=== PATIENT | male | born 1980 | race Caucasian/White ===

== ENCOUNTER 2021-06-27 09:16 | Emergency (ER) | payer OTHER ==
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
[2021-06-27 10:07] LABS: Amorphous Sediment,Urine Rare /hpf; Appearance,Urine Cloudy (Clear); Bilirubin,Urine Negative (Negative); Blood,Urine Trace (Negative); Color,Urine Yellow; Glucose,Urine (UA) Negative (Negative); Ketones,Urine Negative (Negative); Leukocyte Esterase,Urine Negative (Negative); Mucus,Urine Rare /hpf; Nitrite,Urine Negative (Negative); Protein,Urine Trace (Negative); RBC,Urine 16 /hpf (0-5); Specific Gravity,Urine 1.019 (1.001-1.035); Urobilinogen,Urine <2.0 mg/dL (<2.0); WBC,Urine 10 /hpf (0-5)
--- NOTE | 2021-06-27 10:20 | US ---
EXAMINATION TYPE: US scrotum with doppler. Grayscale and color Doppler Duplex imaging performed of libby noriega scrotum. DATE OF EXAM: 06/27/2021 COMPARISON: NONE CLINICAL HISTORY: trauma. edema EXAM MEASUREMENTS: TESTICLES: Right Testicle: 4.0 x 2.4 x 3.0 cm Left Testicle: 4.5 x 2.1 x 2.5 cm EPIDIDYMIS HEAD: Right Epididymis: .9 cm appears heterogenous and enlarged. Left Epididymis: .8 x .6 cm Doppler performed to assess for testicular vascularity; good bilateral color flow and waveforms are s een. There is no evidence of testicular torsion. Presence of hydroceles: no Presence of varicoceles: no IMPRESSION: 1. Superficial soft tissue swelling of unknown etiology. 2. Underlying testicles have symmetrical and normal blood flow.
[2021-06-27] MEDS ORDERED: cefTRIAXone 500 MG VIAL IM STA (10:44)
[2021-06-27] MEDS ORDERED: AZITHROMYCIN 500 MG TAB PO STA (10:45)
[2021-06-27 10:58] VITALS: BP 119/82; PULSE 63; RESP 16; TEMP 98.3
[2021-06-28 14:28] LABS: C. trachomatis,PCR Positive (Neg,Equiv); Chlamydia trachomatis Source Urine; N. gonorrhoeae,PCR Negative (Neg,Equiv); Neisseria Source Urine
== END 2021-06-27 11:05 | disposition home or self-care (01) ==
LOC: EC 09:16
DX: S30.22XA Contusion of scrotum and testes, initial encounter (principal); W50.0XXA Accidental hit or strike by another person, initial encounter
CPT/HCPCS: 99284; 96372; 81001; 87491; 87591; 87086; 93975; 76870; J0696

== ENCOUNTER 2023-05-06 02:44 | Inpatient (IN) | payer OTHER ==
[2023-05-06] MEDS ORDERED: ONDANSETRON 4 MG/2 ML VIAL IVP STA (03:16)
[2023-05-06] MEDS ORDERED: HYDROmorphone 0.5 MG/0.5 ML SYRINGE IVP STA (03:16)
[2023-05-06] MEDS ORDERED: SODIUM CHLORIDE 0.9% 500 ML 500 ML IV ONE (03:16)
--- NOTE | 2023-05-06 03:23 | ED ---
General Adult HPI - General Source: patient, RN notes reviewed Mode of arrival: ambulatory Limitations: no limitations <Erickson Mann - Last Filed: 05/06/23 04:06> <Shira Hensley - Last Filed: 05/06/23 16:01> - General Chief complaint: Skin/Abscess/Foreign Body Stated complaint: Abscess on nose - History of Present Illness Initial comments: patient is a 42 year old male presenting to the ER with a chief complaint of nose abscess and facial swelling. pt states he first noticed a small pimple on his nose about 4 days ago. he tried to squeeze it but got little purulent discharge. patient reports try to squeeze it again about 5 hours ago and the swelling has since spread to involve his right eye. denies difficulty breathing, fevers, chills, painful movements of eye. (Erickson Mann) - Related Data Home Medications Medication Instructions Recorded Confirmed No Known Home Medications 05/06/23 05/06/23 Allergies Allergy/AdvReac Type Severity Reaction Status Date / Time No Known Allergies Allergy Verified 05/06/23 08:17 Review of Systems ROS Other: All systems not noted in ROS Statement are negative. <Erickson Mann - Last Filed: 05/06/23 04:06> ROS Other: All systems not noted in ROS Statement are negative. <Shira Hensley - Last Filed: 05/06/23 16:01> ROS Statement: Those systems with pertinent positive or pertinent negative responses have been documented in the HPI. Past Medical History Past Medical History: No Reported History History of Any Multi-Drug Resistant Organisms: None Reported Additional Past Surgical History / Comment(s): Right hand 5th digit amputation, R knee Past Psychological History: No Psychological Hx Reported Smoking Status: Never smoker Past Alcohol Use History: Rare Past Drug Use History: Marijuana <Erickson Mann - Last Filed: 05/06/23 04:06> General Exam Limitations: no limitations General appearance: alert, in no apparent distress Eye exam: Present: normal appearance, PERRL, EOMI, periorbital swelling (left), periorbital tenderness (left). Absent: scleral icterus, conjunctival injection ENT exam: Present: other (erythematous indurated left nare with surrounding edema and tenderness) Respiratory exam: Present: normal lung sounds bilaterally. Absent: respiratory distress, wheezes, rales, rhonchi, stridor Cardiovascular Exam: Present: regular rate, normal rhythm, normal heart sounds. Absent: systolic murmur, diastolic murmur, rubs, gallop, clicks <Erickson Mann - Last Filed: 05/06/23 04:06> Course Vital Signs 05/06/23 05/06/23 05/06/23 02:49 04:10 07:56 Temperature 97.9 F 98.5 F Pulse Rate 91 92 72 Respiratory 18 18 18 Rate Blood Pressure 155/91 142/87 125/64 O2 Sat by Pulse 98 98 98 Oximetry Procedures - Incision & Drainage Consent Obtained: verbal consent Indication: abscess Site: face Size (cm): 4 Amount (mLs): 5 (ml of LET placed to site) I&D Cleaning Method: Alcohol Wipe Sterile Field Used?: Yes Scalpel Used: #11 Needle Aspiration Performed?: No Irrigation Performed?: No I&D Drainage Obtained: Pus Culture Obtained?: Yes Patient Tolerated Procedure: well, no complications <Shira Hensley A - Last Filed: 05/06/23 16:01> Medical Decision Making - Lab Data Result diagrams: 05/06/23 03:17 05/06/23 03:17 <Erickson Mann - Last Filed: 05/06/23 04:06> - Lab Data Result diagrams: 05/06/23 03:17 05/06/23 03:17 <Shira Hensley - Last Filed: 05/06/23 16:01> - Medical Decision Making Was pt. sent in by a medical professional or institution (, PA, PATHOLOGY LABORATORY DIRECTOR, urgent care, hospital, or alf...) When possible be specific @ -No Did you speak to anyone other than the patient for history (EMS, parent, family, police, friend...)? What history was obtained from this source @ -No Did you review nursing and triage notes (agree or disagree)? Why? @ -I reviewed and agree with nursing and triage notes Were old charts reviewed (outside hosp., previous admission, EMS record, old EKG, old radiological studies, urgent care reports/EKG's, alf records)? Report findings @ -No old charts were reviewed Differential Diagnosis (chest pain, altered mental status, abdominal pain women, abdominal pain men, vaginal bleeding, weakness, fever, dyspnea, syncope, headache, dizziness, GI bleed, back pain, seizure, CVA, palpatations, mental health, musculoskeletal)? @ -Nasal abscess, facial cellulitis EKG interpreted by me (3pts min.). @ -None X-rays interpreted by me (1pt min.). @ -None done CT interpreted by me (1pt min.). @ -None done U/S interpreted by me (1pt. min.). @ -None done What testing was considered but not performed or refused? (CT, X-rays, U/S, labs)? Why? @ -None What meds were considered but not given or refused? Why? @ -None Did you discuss the management of the patient with other professionals (professionals i.e. , PA, PATHOLOGY LABORATORY DIRECTOR, lab, RT, psych nurse, socially responsible investment adviser, machine lay out worker, teacher, ambulance officer, rn case mgr)? Give summary @ -No Was smoking cessation discussed for >3mins.? @ -No Was critical care preformed (if so, how long)? @ -No Were there social determinants of health that impacted care today? How? (Homelessness, low income, unemployed, alcoholism, drug addiction, transportation, low edu. Level, literacy, decrease access to med. care, care home, rehab)? @ -No Was there de-escalation of care discussed even if they declined (Discuss DNR or withdrawal of care, Hospice)? DNR status @ -No What co-morbidities impacted this encounter? (DM, HTN, Smoking, COPD, CAD, Cancer, CVA, ARF, Chemo, Hep., AIDS, mental health diagnosis, sleep apnea, morbid obesity)? @ -None Was patient admitted / discharged? Hospital course, mention meds given and route, prescriptions, significant lab abnormalities, going to OR and other pertinent info. @ -Patient's case signed out to pending CT results Undiagnosed new problem with uncertain prognosis? @ -No Drug Therapy requiring intensive monitoring for toxicity (Heparin, Nitro, Insulin, Cardizem)? @ -No Were any procedures done? @ -No (Erickson Mann) Patient was signed out to me pending CT read. Does demonstrate large nasal abscess with periorbital swelling bilaterally. I did perform incision and alex nagnena of the abscess. I did receive approximately 6 mL of purulent green/yellow drainage. Patient tolerated the procedure well. Culture was obtained. Patient is started on Unasyn and Vanco. Recommended admission. Spoke with Janie from [facility] who agreed to admit the patient (Shira Hensley) - Lab Data Lab Results 05/06/23 05/06/23 05/06/23 Range/Units 03:17 03:17 03:17 WBC 12.3 H (3.8-10.6) k/uL RBC 4.47 (4.30-5.90) m/uL Hgb 13.3 (13.0-17.5) gm/dL Hct 40.2 (39.0-53.0) % MCV 89.9 (80.0-100.0) fL MCH 29.7 (25.0-35.0) pg MCHC 33.0 (31.0-37.0) g/dL RDW 12.6 (11.5-15.5) % Plt Count 274 (150-450) k/uL MPV 7.6 Neutrophils % 77 % Lymphocytes % 10 % Monocytes % 8 % Eosinophils % 2 % Basophils % 0 % Neutrophils # 9.5 H (1.3-7.7) k/uL Lymphocytes # 1.3 (1.0-4.8) k/uL Monocytes # 1.0 (0-1.0) k/uL Eosinophils # 0.3 (0-0.7) k/uL Basophils # 0.1 (0-0.2) k/uL Sodium 140 (137-145) mmol/L Potassium 3.9 (3.5-5.1) mmol/L Chloride 101 (98-107) mmol/L Carbon Dioxide 32 H (22-30) mmol/L Anion Gap 7 mmol/L BUN 12 (9-20) mg/dL Creatinine 0.82 (0.66-1.25) mg/dL Est GFR (CKD-EPI)AfAm >90 (>60 ml/min/1.73 sqM) Est GFR (CKD-EPI)NonAf >90 (>60 ml/min/1.73 sqM) Glucose 107 H (74-99) mg/dL Plasma Lactic Acid Mo 1.4 (0.7-2.0) mmol/L Calcium 9.1 (8.4-10.2) mg/dL Total Bilirubin 0.5 (0.2-1.3) mg/dL AST 29 (17-59) U/L ALT 45 (4-49) U/L Alkaline Phosphatase 73 (38-126) U/L Total Protein 7.1 (6.3-8.2) g/dL Albumin 4.1 (3.5-5.0) g/dL Disposition <Erickson Mann - Last Filed: 05/06/23 04:06> Is patient prescribed a controlled substance at d/c from ED?: No Time of Disposition: 07:35 Decision to Admit Reason: Admit from EC Decision Date: 05/06/23 Decision Time: 07:35 <Shira Hensley - Last Filed: 05/06/23 16:01> Clinical Impression: Nasal abscess Disposition: ADMITTED IP TO THIS HOSP Condition: Stable
[2023-05-06 03:41] LABS: Basophils # (A) 0.1 k/uL (0-0.2); Basophils % (A) 0 %; Eosinophils # (A) 0.3 k/uL (0-0.7); Eosinophils % (A) 2 %; HCT 40.2 % (39.0-53.0); HGB 13.3 gm/dL (13.0-17.5); Lymphocytes # (A) 1.3 k/uL (1.0-4.8); Lymphocytes % (A) 10 %; MCH 29.7 pg (25.0-35.0); MCV 89.9 fL (80.0-100.0); Mean Platelet Volume 7.6; Monocytes % (A) 8 %; Neutrophils # (A) 9.5 k/uL (1.3-7.7); Neutrophils % (A) 77 %; Platelet Count 274 k/uL (150-450); RBC 4.47 m/uL (4.30-5.90); RDW 12.6 % (11.5-15.5); WBC 12.3 k/uL (3.8-10.6)
[2023-05-06 03:52] LABS: ALT 45 U/L (4-49); AST 29 U/L (17-59); African American GFR (CKD) >90 (>60 ml/min/1.73 sqM); Albumin 4.1 g/dL (3.5-5.0); Alkaline Phosphatase 73 U/L (38-126); Anion Gap 7 mmol/L; Blood Urea Nitrogen 12 mg/dL (9-20); Calcium 9.1 mg/dL (8.4-10.2); Carbon Dioxide 32 mmol/L (22-30); Chloride 101 mmol/L (98-107); Glucose 107 mg/dL (74-99); Non-African American GFR(CKD) >90 (>60 ml/min/1.73 sqM); Potassium 3.9 mmol/L (3.5-5.1); Sodium 140 mmol/L (137-145); Total Bilirubin 0.5 mg/dL (0.2-1.3); Total Protein 7.1 g/dL (6.3-8.2)
--- NOTE | 2023-05-06 07:12 | CT ---
EXAMINATION TYPE: CT facial bones w con DATE OF EXAM: 05/06/2023 COMPARISON: None HISTORY: 42-year-old male with facial swelling, nasal abscess TECHNIQUE: Contiguous axial scanning of the facial bones performed with IV Contrast, patient injected with 65 mL of Isovue 300. Coronal/sagittal reconstructions performed. CT DLP: 348.7 mGycm Automated exposure control for dose reduction was used. FINDINGS: The thick walled, peripherally enhancing fluid collection along the left side of the nose. Margins ar e somewhat irregular but overall size of approximately 3.8 cm long by 1.3 cm AP by 1.4 cm wide. Refer to sagittal image 40 and axial image 23. There is some mass effect onto the anterior soft tissue nasal septum and marked overlying soft tissue swelling. There is contiguous preseptal and premaxillary soft tissue swelling also present. No post septal abno rmality is seen. Normal enhancement of the superior pelvic veins. Trace mucosal thickening anterior ethmoid air cells. Orbits and globes are intact. No underlying acute fracture seen. IMPRESSION: A 3.8 X 1.3 X 1.4 CM ABSCESS ALONG THE SOFT TISSUES OF THE LEFT SIDE OF THE NOSE. SURROUNDING CELLULI TIS EXTENDING TO THE BILATERAL PRESEPTAL AND PREMAXILLARY REGIONS.
[2023-05-06] MEDS ORDERED: LIDOCAINE/EPINEPHR/TETRACAINE 5 ML BOTTLE TOPICAL ONE (07:34)
[2023-05-06] MEDS ORDERED: HYDROmorphone 1 MG/ML 1 ML SYRINGE IVP STA (07:34)
[2023-05-06] MEDS ORDERED: VANCOMYCIN IV PER PHARMACY 1 EACH MISC MISCELLANE PRN (07:34)
[2023-05-06] MEDS ORDERED: VANCOMYCIN 1,500 MG in SODIUM CHLORIDE 0.9% 500 ML 500 ML IVPB ONE (08:00)
[2023-05-06] MEDS ORDERED: NALOXONE 0.4 MG/ML 1 ML VIAL IV PRN (08:22)
--- NOTE | 2023-05-06 10:53 | P.HPIM ---
History of Present Illness 43-year-old male admitted with left-sided any cellulitis or significant swelling and cellulitis of the nose. Patient states had a small pimple which upon scratching for 4 days let the an abscess with purulent drainage. Patient denied any history of MRSA in the past patient does have leukocytosis without any fever. CT showed 3.8 x 1.3 x 1.4 cm abscess. ENT was consulted from ER patient was given vancomycin and Ancef. REVIEW OF SYSTEMS: CONSTITUTIONAL: No fever, no malaise, no fatigue. HEENT: No recent visual problems or hearing problems. Denied any sore throat. CARDIOVASCULAR: No chest pain, orthopnea, PND, no palpitations, no syncope. PULMONARY: No shortness of breath, no cough, no hemoptysis. GASTROINTESTINAL: No diarrhea, no nausea, no vomiting, no abdominal pain. NEUROLOGICAL: No headaches, no weakness, no numbness. HEMATOLOGICAL: Denies any bleeding or petechiae. GENITOURINARY: Denies any burning micturition, frequency, or urgency. MUSCULOSKELETAL/RHEUMATOLOGICAL: Denies any joint pain, swelling, or any muscle pain. ENDOCRINE: Denies any polyuria or polydipsia. The rest of the 14-point review of systems is negative. PHYSICAL EXAMINATION: GENERAL: The patient is alert and oriented x3, not in any acute distress. Well developed, well nourished. HEENT: Pupils are round and equally reacting to light. EOMI. No scleral icterus. No conjunctival pallor. Normocephalic, atraumatic. No pharyngeal erythema. No thyromegaly. Abscess in the left side of the face with significant swelling of the nose and cellulitis of the entire CARDIOVASCULAR: S1 and S2 present. No murmurs, rubs, or gallops. PULMONARY: Chest is clear to auscultation, no wheezing or crackles. ABDOMEN: Soft, nontender, nondistended, normoactive bowel sounds. No palpable organomegaly. MUSCULOSKELETAL: No joint swelling or deformity. EXTREMITIES: No cyanosis, clubbing, or pedal edema. NEUROLOGICAL: Gross neurological examination did not reveal any focal deficits. SKIN: No rashes. Assessment and plan -Significant abscess with surrounding cellulitis: Patient will be continued on DynaCirc vancomycin will be discontinued may need drainage, ENT was consulted. Wound cultures will be obtained a blood cultures were obtained -Leukocytosis: Secondary to nasal abscess DVT prophylaxis: Early ambulation Past Medical History Past Medical History: No Reported History History of Any Multi-Drug Resistant Organisms: None Reported Additional Past Surgical History / Comment(s): Right hand 5th digit amputation, R knee Past Psychological History: No Psychological Hx Reported Smoking Status: Never smoker Past Alcohol Use History: Rare Past Drug Use History: Marijuana Medications and Allergies Home Medications Medication Instructions Recorded Confirmed Type No Known Home Medications 05/06/23 05/06/23 History Allergies Allergy/AdvReac Type Severity Reaction Status Date / Time No Known Allergies Allergy Verified 05/06/23 08:17 Physical Exam Vitals: Vital Signs Temp Pulse Resp BP Pulse Ox 05/06/23 07:56 98.5 F 72 18 125/64 98 05/06/23 04:10 92 18 142/87 98 05/06/23 02:49 97.9 F 91 18 155/91 98 Intake and Output 05/05/23 05/06/23 05/06/23 22:59 06:59 14:59 Other: Weight 77.111 kg Results CBC & Chem 7: 05/06/23 03:17 05/06/23 03:17 Labs: Abnormal Lab Results - Last 24 Hours (Table) 05/06/23 05/06/23 Range/Units 03:17 03:17 WBC 12.3 H (3.8-10.6) k/uL Neutrophils # 9.5 H (1.3-7.7) k/uL Carbon Dioxide 32 H (22-30) mmol/L Glucose 107 H (74-99) mg/dL
[2023-05-06] MEDS: HYDROmorphone 0.5 MG/0.5 ML SYRINGE IVP PRN ×3 (12:53→21:06)
[2023-05-06] MEDS ORDERED: VANCOMYCIN 1,500 MG in SODIUM CHLORIDE 0.9% 500 ML 500 ML IVPB SCH (18:00)
[2023-05-07] MEDS: HYDROmorphone 0.5 MG/0.5 ML SYRINGE IVP PRN ×5 (00:49→21:39)
[2023-05-07] MEDS ORDERED: VANCOMYCIN IV PER PHARMACY 1 EACH MISC MISCELLANE PRN ×2 (12:55→14:02)
[2023-05-07] MEDS ORDERED: traMADol 50 MG TAB PO PRN (12:56)
[2023-05-07] MEDS ORDERED: ARTIFICIAL TEARS-HYPROMELLOSE DROPS 15 ML BTL BOTH EYES PRN (12:59)
--- NOTE | 2023-05-07 13:49 | P.PN ---
Subjective Progress Note Date: 05/07/23 43-year-old male admitted with left-sided any cellulitis or significant swelling and cellulitis of the nose. Patient states had a small pimple which upon scratching for 4 days let the an abscess with purulent drainage. Patient denied any history of MRSA in the past patient does have leukocytosis without any fever. CT showed 3.8 x 1.3 x 1.4 cm abscess. ENT was consulted from ER patient was given vancomycin and Ancef. 05/07/2023 Patient evaluated today on the observation unit. patient has progressive periorbital cellulitis worse on the left there is an open wound on the tip of the nose which is draining and further up on the nasal bridge there is a closed wound with surrounding erythema. ENT has been consulted was not notified on admission of the consultation will come see the patient today. ID has been consulted as well and patient is continued on vancomycin. Patient has injected conjunctiva bilaterally and there is green/yellow discharge from bilateral eyes with crusting. Patient feels the swelling is slightly improved. Patient has contact lenses in place bilaterally and will be removed. Recommend saline eye drops. Nasal culture showing preliminary rare gram positive cocci. Blood culture is negative so far. Review of Systems Constitutional: Denied any fatigue denied any fever. Cardio vascular: denied any chest pain, palpitations Gastrointestinal: denied any nausea, vomiting, diarrhea Pulmonary: Denied any shortness of breath cough Neurologic denied any new focal deficits All inpatient medications were reviewed and appropriate changes in these medications as dictated in the interval history and assessment and plan. PHYSICAL EXAMINATION: GENERAL: The patient is alert and oriented x3, not in any acute distress. Well developed, well nourished. HEENT: Pupils are round and equally reacting to light. EOMI. No scleral icterus. No conjunctival pallor. Normocephalic, atraumatic. No pharyngeal erythema. No thyromegaly. Abscess in the left side of the face with significant swelling of the nose and left sided periorbiltal cellulitis with bilateral conjunctivitis with green/yellow drainage from the eyes. CARDIOVASCULAR: S1 and S2 present. No murmurs, rubs, or gallops. PULMONARY: Chest is clear to auscultation, no wheezing or crackles. ABDOMEN: Soft, nontender, nondistended, normoactive bowel sounds. No palpable organomegaly. MUSCULOSKELETAL: No joint swelling or deformity. EXTREMITIES: No cyanosis, clubbing, or pedal edema. NEUROLOGICAL: Gross neurological examination did not reveal any focal deficits. SKIN: No rashes. Assessment and plan -Significant abscess tip of nose and also left nasal bridge with surrounding cellulitis -Bilateral bacterial conjunctivitis and bilateral left greater than right periorbital cellulitis -Leukocytosis: Secondary to nasal abscess DVT prophylaxis: Early ambulation GI prophylaxis Full Code Plan Patient continues on IV antibiotics pending cultures. Infectious disease has been consulted and patient will be evaluated by ENT also. Repeat CBC in the AM. The impression and plan of care has been dictated by Janie Jimenez Nurse Practitioner as directed. Dr. Melanie MD I have performed a history and physical examination and medical decision making of this patient, discussed the same with the dictator, and agree with the dictators assessment and plan as written, documented as a scribe. Based on total visit time, I have performed more than 50% of this visit. Objective - Vital Signs Vital signs: Vital Signs Temp 99.1 F 05/07/23 08:11 Pulse 83 05/07/23 08:11 Resp 17 05/07/23 08:11 BP 127/79 05/07/23 08:11 Pulse Ox 95 05/07/23 08:11 FiO2 Intake & Output 05/06/23 05/07/23 05/07/23 18:59 06:59 18:59 Intake Total 450 118 Balance 450 118 Weight 77.111 kg Intake: Intake, IV Titration 50 Amount ceFAZolin 2 gm In Sodium 50 Chloride 0.9% 50 ml @ 100 mls/hr IVPB Q8HR [facility] Rx# :[id number] Oral 400 118 Other: Voiding Method Toilet Toilet # Voids 1 1 - Labs CBC & Chem 7: 05/06/23 03:17 05/06/23 03:17 Labs: Microbiology - Last 24 Hours (Table) 05/06/23 08:58 Gram Stain - Preliminary Nose Assessment and Plan Time with Patient: Less than 30
[2023-05-07] MEDS: PANTOPRAZOLE 40 MG TABLET PO SCH (15:07)
[2023-05-07] MEDS: VANCOMYCIN 1,500 MG in SODIUM CHLORIDE 0.9% 500 ML 500 ML IVPB SCH ×2 (15:09→21:33)
[2023-05-07] MEDS ORDERED: ACETAMINOPHEN TAB 325 MG TAB PO PRN (20:52)
[2023-05-08] MEDS: HYDROmorphone 0.5 MG/0.5 ML SYRINGE IVP PRN ×5 (02:09→19:31)
[2023-05-08] MEDS: VANCOMYCIN 1,500 MG in SODIUM CHLORIDE 0.9% 500 ML 500 ML IVPB SCH ×3 (06:02→22:24)
[2023-05-08] MEDS: PANTOPRAZOLE 40 MG TABLET PO SCH (06:02)
[2023-05-08 06:28] LABS: African American GFR (CKD) >90 (>60 ml/min/1.73 sqM); Anion Gap 6 mmol/L; Blood Urea Nitrogen 12 mg/dL (9-20); Calcium 8.8 mg/dL (8.4-10.2); Carbon Dioxide 30 mmol/L (22-30); Chloride 102 mmol/L (98-107); Glucose 100 mg/dL (74-99); Non-African American GFR(CKD) >90 (>60 ml/min/1.73 sqM); Potassium 4.4 mmol/L (3.5-5.1); Sodium 138 mmol/L (137-145)
[2023-05-08 06:47] LABS: Basophils % (A) 0 %; Eosinophils # (A) 0.2 k/uL (0-0.7); Eosinophils % (A) 4 %; HCT 44.3 % (39.0-53.0); HGB 14.6 gm/dL (13.0-17.5); Lymphocytes # (A) 1.4 k/uL (1.0-4.8); Lymphocytes % (A) 26 %; MCH 30.1 pg (25.0-35.0); MCV 91.2 fL (80.0-100.0); Mean Platelet Volume 7.4; Monocytes # (A) 0.6 k/uL (0-1.0); Monocytes % (A) 11 %; Neutrophils # (A) 3.2 k/uL (1.3-7.7); Neutrophils % (A) 56 %; Platelet Count 258 k/uL (150-450); RBC 4.86 m/uL (4.30-5.90); RDW 12.2 % (11.5-15.5); WBC 5.6 k/uL (3.8-10.6)
--- NOTE | 2023-05-08 09:41 | P.CONS ---
History of Present Illness - Reason for Consult Consult date: 05/07/23 Nasal abscess, periorbital cellulitis Requesting physician: Janie Jimenez - Chief Complaint Nasal and left-sided facial swelling and redness x few days - History of Present Illness Patient is a 42-year-old male with no significant past medical history presenting to the ER on 05/06/2023 for evaluation of nasal and facial swelling that apparently has been getting worse for 4 days before he presented to the hospital patient developed a pimple on his nose 4 days with the patient tried to squeeze he did mention a slight amount of purulent material came out however afterwards the patient noticing increasing swelling and redness and pain to the nose and to the left side of his face patient describes the pain to be more of a throbbing in nature almost 7-8 out of 10 head no radiation with associated swelling and redness and did have some drainage patient presented to hospital on arrival to the ER the patient was afebrile he did have a white count of 12.3 with a left shift kidney function was normal patient did have a CT of the face which did shows 3.8 X1.3X 1.14 cm abscess along the soft tissue on the left side of the nose and surrounding cellulitis patient did have a bedside drainage by the ER physician cultures were obtained patient was given vancomycin which was subsequent discontinued started on cefazolin with worsening cellulitis infectious disease was consulted for further management of antibiotic therapy Review of Systems Positive point and negatives has been mentioned in the HPI, complete review of systems was performed and all other systems are negative Past Medical History Past Medical History: No Reported History History of Any Multi-Drug Resistant Organisms: None Reported Additional Past Surgical History / Comment(s): 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1 F 83 17 127/79 95 05/07/23 08:00 83 05/07/23 02:00 98.5 F 74 18 150/80 94 L 05/06/23 20:00 98.4 F 87 17 118/72 96 05/06/23 13:59 99.2 F 76 16 121/75 96 Intake and Output 05/06/23 05/07/23 05/07/23 22:59 06:59 14:59 Intake Total 450 118 Balance 450 118 Intake: Intake, IV Titration 50 Amount ceFAZolin 2 gm In Sodium 50 Chloride 0.9% 50 ml @ 100 mls/hr IVPB Q8HR [facility] Rx# :[id number] Oral 400 118 Other: Voiding Method Toilet Toilet Toilet # Voids 1 GENERAL DESCRIPTION: Middle-aged male lying in bed, no distress. No tachypnea or accessory muscle of respiration use. HEENT: Shows Pallor , no scleral icterus. Oral mucous membrane is dry. Patient did have significant swelling and purulent drainage to the nose and erythema of the left side of the face NECK: Trachea central, no thyromegaly. LUNGS: Unlabored breathing. Clear to auscultation anteriorly. No wheeze or crackle. HEART: S1, S2, regular rate and rhythm. No loud murmur ABDOMEN: Soft, no tenderness , guarding or rigidity, no organomegaly EXTREMITIES: No edema of feet. SKIN: No rash, no masses palpable. NEUROLOGICAL: The patient is awake, alert, oriented x3, mood and affect normal. Results CBC & Chem 7: 05/08/23 05:52 05/09/23 05:21 Labs: Microbiology - Last 24 Hours (Table) 05/06/23 07:50 Blood Culture - Preliminary Blood 05/06/23 07:40 Blood Culture - Preliminary Blood 05/06/23 08:58 Gram Stain - Preliminary Nose Assessment and Plan (1) Nasal abscess Status: Acute Code(s): J34.0 - ABSCESS, FURUNCLE AND CARBUNCLE OF NOSE SNOMED Code(s): 6925233 Plan: 1patient presented hospital with left side of the nose and facial cellulitis and abscess as seen on the CT with attempted drainage by the ER physician patient still have significant amount of swelling and underlying abscess that would benefit from surgical drainage for which ENT has been consulted 2-with high clinical suspicious for MRSA we will discontinue cefazolin start the patient on vancomycin pharmacy to dose We will follow on clinical condition and cultures to further adjust medication if needed Thank you for this consultation we will follow the patient along with you Time with Patient: Greater than 30
[2023-05-08] MEDS: SODIUM CHLORIDE 0.9% 500 ML 500 ML IV SCH (10:13)
--- NOTE | 2023-05-08 11:53 | P.PN ---
Subjective Progress Note Date: 05/08/23 43-year-old male admitted with left-sided any cellulitis or significant swelling and cellulitis of the nose. Patient states had a small pimple which upon scratching for 4 days let the an abscess with purulent drainage. Patient denied any history of MRSA in the past patient does have leukocytosis without any fever. CT showed 3.8 x 1.3 x 1.4 cm abscess. ENT was consulted from ER patient was given vancomycin and Ancef. 05/07/2023 Patient evaluated today on the observation unit. patient has progressive periorbital cellulitis worse on the left there is an open wound on the tip of the nose which is draining and further up on the nasal bridge there is a closed wound with surrounding erythema. ENT has been consulted was not notified on admission of the consultation will come see the patient today. ID has been consulted as well and patient is continued on vancomycin. Patient has injected conjunctiva bilaterally and there is green/yellow discharge from bilateral eyes with crusting. Patient feels the swelling is slightly improved. Patient has contact lenses in place bilaterally and will be removed. Recommend saline eye drops. Nasal culture showing preliminary rare gram positive cocci. Blood culture is negative so far. 05/08/2023 Patient evaluated today on the medical floor. Cellulitis is improved today including around the left eye. There is less drainage. The abscess on the left nasal bridge has come to a head however is not draining. ENT will be in later this evening to evaluation and possible I and D. Cultures are showing presumptive MRSA. Continues on IV vancomyin and white count has normalized. Review of Systems Constitutional: Denied any fatigue denied any fever. Cardio vascular: denied any chest pain, palpitations Gastrointestinal: denied any nausea, vomiting, diarrhea Pulmonary: Denied any shortness of breath cough Neurologic denied any new focal deficits All inpatient medications were reviewed and appropriate changes in these medications as dictated in the interval history and assessment and plan. PHYSICAL EXAMINATION: GENERAL: The patient is alert and oriented x3, not in any acute distress. Well developed, well nourished. HEENT: Pupils are round and equally reacting to light. EOMI. No scleral icterus. No conjunctival pallor. Normocephalic, atraumatic. No pharyngeal erythema. No thyromegaly. Abscess in the left side of the nasal bridge with significant swelling of the nose and left sided periorbiltal cellulitis which is improving. Less drainage from the eyes today. CARDIOVASCULAR: S1 and S2 present. No murmurs, rubs, or gallops. PULMONARY: Chest is clear to auscultation, no wheezing or crackles. ABDOMEN: Soft, nontender, nondistended, normoactive bowel sounds. No palpable organomegaly. MUSCULOSKELETAL: No joint swelling or deformity. EXTREMITIES: No cyanosis, clubbing, or pedal edema. NEUROLOGICAL: Gross neurological examination did not reveal any focal deficits. SKIN: No rashes. Assessment and plan -Significant abscess tip of nose and also left nasal bridge with surrounding cellulitis preliminary cultures are showing presumptive MRSA. -Bilateral bacterial conjunctivitis and bilateral left greater than right periorbital cellulitis improving -Leukocytosis: Secondary to nasal abscess, resolved DVT prophylaxis: Early ambulation GI prophylaxis Full Code Plan Patient continues on IV vancomycin pending final cultures. Infectious disease following and Dr. Campos will be in today for further evaluation. The impression and plan of care has been dictated by Janie Jimenez, Nurse Practitioner as directed. Dr. Melanie MD I have performed a history and physical examination and medical decision making of this patient, discussed the same with the dictator, and agree with the dictators assessment and plan as written, documented as a scribe. Based on total visit time, I have performed more than 50% of this visit. Objective - Vital Signs Vital signs: Vital Signs Temp 98.5 F 05/08/23 07:00 Pulse 63 05/08/23 08:00 Resp 16 05/08/23 08:00 BP 101/68 05/08/23 07:00 Pulse Ox 98 05/08/23 07:00 FiO2 Intake & Output 05/07/23 05/08/23 05/08/23 18:59 06:59 18:59 Intake Total 118 118 Balance 118 118 Intake: Oral 118 118 Other: Voiding Method Toilet Toilet Toilet # Voids 3 2 - Labs CBC & Chem 7: 05/08/23 05:52 05/08/23 05:52 Labs: Abnormal Lab Results - Last 24 Hours (Table) 05/08/23 Range/Units 05:52 Glucose 100 H (74-99) mg/dL Microbiology - Last 24 Hours (Table) 05/06/23 08:58 Gram Stain - Preliminary Nose Wound Culture - Preliminary Presumptive MRSA 05/06/23 07:50 Blood Culture - Preliminary Blood 05/06/23 07:40 Blood Culture - Preliminary Blood Assessment and Plan Time with Patient: Less than 30
[2023-05-08] MEDS ORDERED: VANCOMYCIN TROUGH DUE 1 EACH MISC MISCELLANE ONE (13:00)
--- NOTE | 2023-05-08 15:03 | P.PN ---
Subjective Progress Note Date: 05/08/23 Principal diagnosis: MRSA nasal abscess Patient is a 42-year-old male with no significant past medical history presenting to the ER on 05/06/2023 for evaluation of nasal and facial swelling that apparently has been getting worse for 4 days before he presented to the hospital , CT did shows evidence of nasal abscess and the patient did have a bedside drainage by ER physician, cultures are presumptive MRSA. On today's evaluation that is 05/08/2023, patient did have a low-grade fever of 99.7 last night the patient is afebrile since then, the patient denies swelling to the nasal bridge has slightly decreased still has some purulent drainage no chest pain or shortness of breath or cough no abdominal pain or diarrhea Objective - Vital Signs Vital signs: Vital Signs Temp 98.5 F 05/08/23 07:00 Pulse 63 05/08/23 08:00 Resp 16 05/08/23 08:00 BP 101/68 05/08/23 07:00 Pulse Ox 98 05/08/23 07:00 FiO2 Intake & Output 05/07/23 05/08/23 05/08/23 18:59 06:59 18:59 Intake Total 118 118 Balance 118 118 Intake: Oral 118 118 Other: Voiding Method Toilet Toilet Toilet # Voids 3 2 - Exam GENERAL DESCRIPTION: Middle-age male lying in bed in no distress HEENT; nasal bridge especially the day. He did have an open wound with purulent drainage with some erythema to the left facial side RESPIRATORY SYSTEM: Unlabored breathing , decreased breath sounds at bases HEART: S1 S2 regular rate and rhythm , ABDOMEN: Soft , no tenderness EXTREMITIES: No edema feet - Labs CBC & Chem 7: 05/08/23 05:52 05/08/23 05:52 Labs: Abnormal Lab Results - Last 24 Hours (Table) 05/08/23 Range/Units 05:52 Glucose 100 H (74-99) mg/dL Microbiology - Last 24 Hours (Table) 05/06/23 07:50 Blood Culture - Preliminary Blood 05/06/23 07:40 Blood Culture - Preliminary Blood 05/06/23 08:58 Gram Stain - Preliminary Nose Wound Culture - Preliminary Presumptive MRSA Assessment and Plan (1) MRSA (methicillin resistant staph aureus) culture positive Current Visit: Yes Status: Acute Code(s): Z22.322 - CARRIER OR SUSPECTED CARRIER OF METHICILLIN RESIS STAPH SNOMED Code(s): 692386259 (2) Nasal abscess Current Visit: Yes Status: Acute Code(s): J34.0 - ABSCESS, FURUNCLE AND CARBUNCLE OF NOSE SNOMED Code(s): 0480403 Plan: 1patient presented hospital with left side of the nose and facial cellulitis and abscess as seen on the CT with attempted drainage by the ER physician patient still have significant amount of swelling and underlying abscess that would benefit from surgical drainage for which ENT has been consulted 2Local cultures with recurrent MRSA patient to continue with vancomycin pharm acy to dose, and watching his kidney function closely Time with Patient: Less than 30
[2023-05-09] MEDS: HYDROmorphone 0.5 MG/0.5 ML SYRINGE IVP PRN ×3 (00:10→09:12)
--- NOTE | 2023-05-09 03:15 | CONS ---
CONSULTATION REASON FOR CONSULTATION: Nasal abscess. HISTORY OF PRESENT ILLNESS: This is a 42-year-old white male, who presented to the ER 2 days ago in the middle of the night with left nasal swelling. He had a "pimple" on the left side of his nose, which he squeezed and this became worse and had initial diagnosis of left nasal abscess. This was drained in the ER of 6 mL of purulence. He was admitted and placed on IV antibiotics. The initial cultures are presumptive MRSA. He has improved at the nasal tip, where he had initial treatment quite markedly. However, he does have another area superior to this on the left lateral nasal dorsum, which has been persistent. This area was not drained initially. He is having no headache, fever, or chills, and no intranasal symptoms. PAST MEDICAL HISTORY: Negative. 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 SOCIAL HISTORY: He does not smoke. Drinks alcohol rarely. He uses marijuana. ALLERGIES: No known drug allergies. REVIEW OF SYSTEMS: As above and otherwise negative on the 14 point assessment. FAMILY HISTORY: Noncontributory. MEDICATIONS: On admission was none. PHYSICAL EXAMINATION: GENERAL: The patient is alert, awake, and oriented x3, in no acute distress. HEAD AND FACIAL EXAM: Head, normocephalic, atraumatic. Ears bilaterally clear. Canals are clear. Tympanic membranes unremarkable and mobile. Nose, externally there is a healing eschar in the left nasal tip. There is an area of "pointing" with a small eschar over the left lateral nasal dorsum with some minimal purulence and surrounding erythema approximately 1.5 cm. This is fluctuant. Intranasal exam shows no abnormal masses or lesions. No drainage. Mouth and throat shows intuition is fair. No oropharyngeal lesions otherwise. NECK: Supple without adenopathy or tenderness. ASSESSMENT: Left nasal abscess x2. Presumptive methicillin-resistant Staphylococcus aureus. PLAN: Recommend a small incision and drainage procedure of the left upper nasal area and the patient was agreeable to this. This was performed at bedside. See procedure note. There was approximately 2 mL of cloudy yellow drainage produced with good decompression. Excellent hemostasis with local pressure and sterile Band-Aid was placed. Excellent hemostasis. The patient tolerated this well. The patient will be continued on IV antibiotics per Infectious Disease. No additional cultures were performed as presumably this would be the same etiology as the nasal tip organisms. Local wound care instructions also reviewed with the patient upon discharge. Please call for questions or concerns. MMODL / IJN: [id number] /
--- NOTE | 2023-05-09 03:22 | PCN ---
PROCEDURE NOTE PREOPERATIVE DIAGNOSIS: Left nasal abscess. POSTOPERATIVE DIAGNOSIS: Left nasal abscess. PROCEDURE: Incision and drainage of left upper nasal abscess. ANESTHESIA: Local. ESTIMATED BLOOD LOSS: Minimal. Less than 1 mL. COMPLICATIONS: None. DESCRIPTION OF PROCEDURE: Informed consent was obtained with risks, benefits, and alternatives reviewed with the patient with risks including, but not inclusive of the risk of local anesthesia, bleeding, infection, scarring, cosmetic deformity, recurrence, and need for further procedures. The patient understands these risks and agrees to proceed. The patient was prepped and draped in usual aseptic fashion. 1% lidocaine with 1:100,000 epinephrine was infused subcutaneously in field block fashion with a total of 1 mL used. This is left for over 7 minutes for vasoconstrictive effect. The left nasal site was then incised with micro tip scissors in the already open area and went down into the deeper subcutaneous tissue with production of the drainage as noted above. Once there was no further drainage, hemostasis was gained with local pressure and sterile Band-Aid was placed. The patient tolerated this well with no complications. MMODL / IJN: [id number] /
[2023-05-09] MEDS: VANCOMYCIN 1,500 MG in SODIUM CHLORIDE 0.9% 500 ML 500 ML IVPB SCH (05:36)
[2023-05-09] MEDS: PANTOPRAZOLE 40 MG TABLET PO SCH (05:36)
[2023-05-09 05:57] LABS: African American GFR (CKD) >90 (>60 ml/min/1.73 sqM); Non-African American GFR(CKD) >90 (>60 ml/min/1.73 sqM)
[2023-05-09] MEDS: SODIUM CHLORIDE 0.9% 500 ML 500 ML IV SCH (10:05)
[2023-05-09 10:13] VITALS: BP 125/79; PULSE 76; RESP 15; TEMP 98.6
--- NOTE | 2023-05-09 15:51 | P.PN ---
Subjective Progress Note Date: 05/09/23 Principal diagnosis: MRSA nasal abscess Patient is a 42-year-old male with no significant past medical history presenting to the ER on 05/06/2023 for evaluation of nasal and facial swelling that apparently has been getting worse for 4 days before he presented to the hospital , CT did shows evidence of nasal abscess and the patient did have a bedside drainage by ER physician, cultures are presumptive MRSA. Patient did have bedside drainage of the nasal abscess by ENT on 05/08/2023 On today's evaluation that is 05/09/2023, patient denies any fever or chills, the patient pain and swelling to the nasal bridge has significantly decreased in intensity, the patient denies chest pain or shortness of breath or cough no abdominal pain or diarrhea Objective - Vital Signs Vital signs: Vital Signs Temp 98.6 F 05/09/23 09:00 Pulse 76 05/09/23 09:00 Resp 15 05/09/23 09:00 BP 125/79 05/09/23 09:00 Pulse Ox 99 05/09/23 09:00 FiO2 Intake & Output 05/08/23 05/09/23 05/09/23 18:59 06:59 18:59 Intake Total 827 Balance 827 Intake: Oral 827 Other: Voiding Method Toilet Toilet Toilet # Voids 4 3 # Bowel Movements 1 - Exam GENERAL DESCRIPTION: Middle-age male lying in bed in no distress HEENT; nasal swelling and redness has improved RESPIRATORY SYSTEM: Unlabored breathing , decreased breath sounds at bases HEART: S1 S2 regular rate and rhythm , ABDOMEN: Soft , no tenderness EXTREMITIES: No edema feet - Labs CBC & Chem 7: 05/08/23 05:52 05/09/23 05:21 Labs: Microbiology - Last 24 Hours (Table) 05/06/23 08:58 Gram Stain - Final Nose Wound Culture - Final Methicillin resist S. aureus 05/06/23 07:50 Blood Culture - Preliminary Blood 05/06/23 07:40 Blood Culture - Preliminary Blood Assessment and Plan (1) MRSA (methicillin resistant staph aureus) culture positive Status: Acute Code(s): Z22.322 - CARRIER OR SUSPECTED CARRIER OF METHICILLIN RESIS STAPH SNOMED Code(s): 357714668 (2) Nasal abscess Status: Acute Code(s): J34.0 - ABSCESS, FURUNCLE AND CARBUNCLE OF NOSE SNOMED Code(s): 2429820 Plan: 1patient presented hospital with left side of the nose and facial cellulitis and abscess as seen on the CT with attempted drainage by the ER physician kyle sullivan still have significant amount of swelling and underlying abscess and the patient is status post bedside drainage of the abscess by ENT 2Local cultures grew MRSA patient has shown clinical improvement on vancomycin and has been insisting on going home we will recommend a 10 day course of oral Bactrim DS and close outpatient follow-up discussed with ADVERTISING TRAFFIC MANAGER for admitting team Time with Patient: Less than 30
[2023-05-10] MEDS ORDERED: VANCOMYCIN TROUGH DUE 1 EACH MISC MISCELLANE ONE (13:00)
--- NOTE | 2023-05-10 22:41 | P.DS ---
Providers Date of admission: 05/07/23 13:49 Attending physician: Rajan Neal Consults: 05/06/23 08:22 Consult Physician Urgent Consulting Provider: Cornel Scales Consult Reason/Comments: nasal abscess Do you want consulting provider notified?: Yes 05/07/23 12:56 Consult Physician Routine Consulting Provider: Cleo Leon Consult Reason/Comments: nasal abscess, periorbital cellulitis Do you want consulting provider notified?: Yes Primary care physician: Ren Bassett Hospital Course: Final Diagnosis -Significant abscess tip of nose and also left nasal bridge with surrounding cellulitis preliminary cultures are showing MRSA. -Status post I and D of the nasal bridge abscess on the left -Bilateral bacterial conjunctivitis and bilateral left greater than right periorbital cellulitis significant improved -Leukocytosis: Secondary to nasal abscess, resolved Full Code Discharge Disposition Patient is stable for discharge home. Infectious disease is recommending to complete course of antibiotics with 10 days of bactrim DS twice a day. Patient is status post I and D of the nasal bridge abscess and facial cellulitis is significantly improved. Follow up recommended with infectious disease and ENT if needed. Hospital Course This is a pleasant 42 year old male with no significant past medical history. Presents with left-sided any cellulitis or significant swelling and cellulitis of the nose. Patient states had a small pimple which upon scratching for 4 days let the an abscess with purulent drainage. Patient denied any history of MRSA in the past patient does have leukocytosis without any fever. CT showed 3.8 x 1.3 x 1.4 cm abscess. ENT was consulted from ER patient was given vancomycin and Ancef. Patient had progression of the cellulitis extending bilaterally perioribital worse on the left with the left nasal bridge abscess now coming to a head. The tip of the nose is draining and scabbing. Infectious disease consult requested. Patient had green/yellow discharge from bilateral eyes with crusting. Patient has contact lenses in place bilaterally and will be removed. Wound culture grew MRSA with sensitivity to bactrim and vancomycin. ENT performed bedside I&D. The cellulitis and swelling has significantly improved. Patients white count has normalized. Afebrile, no chest pain no shortness of breath. No visual changes. Patient is cleared for discharge home on oral bactrim BID for 10 days to follow up with his primary provider and infectious disease. Please see medication reconciliation for a list of current medication. Thank you for allowing us to participate in the care of this patient. The impression and plan of care has been dictated by Janie Jimenez, Nurse Practitioner as directed. Dr. Melanie MD I have performed a history and physical examination and medical decision making of this patient, discussed the same with the dictator, and agree with the dictators assessment and plan as written, documented as a scribe. Based on total visit time, I have performed more than 50% of this visit. Patient Condition at Discharge: Stable Plan - Discharge Summary Discharge Rx Participant: Yes New Discharge Prescriptions: New Sulfamethox-Tmp 800-160Mg [Bactrim DS 800-160 mg] 1 tab PO Q12HR 10 Days #20 tab Famotidine [Pepcid] 20 mg PO DAILY #15 tablet Discharge Medication List Famotidine [Pepcid] 20 mg PO DAILY #15 tablet 05/09/23 [Rx] Sulfamethox-Tmp 800-160Mg [Bactrim DS 800-160 mg] 1 tab PO Q12HR 10 Days #20 tab 05/09/23 [Rx] Follow up Appointment(s)/Referral(s): Danyelle Mcclure MD [Primary Care Provider] - 1-2 days Cleo Leon MD [STAFF PHYSICIAN] - 1 Week Cornel Scales MD [STAFF PHYSICIAN] - 1 Week Ambulatory/Diagnostic Orders: Basic Metabolic Panel [LAB.AMB] Time Frame: 3 Days, Location: None Selected Patient Instructions/Handouts: MRSA (Methicillin-Resistant Staphylococcus Aureus) (DC) Activity/Diet/Wound Care/Special Instructions: Notify provider or return to [facility] for worsening facial swelling, redness, or abscess returns/worsens. Discharge Disposition: HOME SELF-CARE
== END 2023-05-09 13:50 | disposition home or self-care (01) | DRG 115 ==
LOC: EC 02:44 → 6NMEDSUR 08:22 → 1SOBS 12:10 → 6NMEDSUR 05-07 13:42 → OBSVTOIN 05-07 13:49
PROVIDERS: ADMIT Hospitalist; ATTEND Hospitalist
PROC: 0J913ZZ Drainage of Face Subcutaneous Tissue and Fascia, Percutaneous Approach (ICD-10-PCS; 2023-05-07)
PROC: 0J910ZX Drainage of Face Subcutaneous Tissue and Fascia, Open Approach, Diagnostic (ICD-10-PCS; principal; 2023-05-08)
DX: J34.0 Abscess, furuncle and carbuncle of nose (principal); L03.213 Periorbital cellulitis; G40.89 Other seizures; B95.62 Methicillin resistant Staphylococcus aureus infection as the cause of diseases classified elsewhere; L03.211 Cellulitis of face; J32.9 Chronic sinusitis, unspecified; R50.9 Fever, unspecified; H10.89 Other conjunctivitis; Z89.021 Acquired absence of right finger(s)
CPT/HCPCS: 10060; 36415; 70487; 80048; 80053; 80202; 82565; 83605; 85025; 87040; 87070; 87077; 87186; 87205; 96365; 96367; 96368; 96375; 99285